=== PATIENT | female | born 2000 | race Asian ===

== ENCOUNTER 2019-11-12 12:30 | Emergency (ER) | payer OTHER, SELFPAY ==
[2019-11-12 12:31] VITALS: BP 92/69; PULSE 145; RESP 18; TEMP 39.2; O2SAT 95; BMI 18.3
--- NOTE | 2019-11-12 13:09 | ED.VISSUMM ---
- ER Visit Summary Date of Service: 11/12/19 Chief Complaint: Cough and fever History of Present Illness: The patient is a 18 F past medical history of thalassemia minor and asthma. This is a female from [place] is a college [employer] student. Basically since yesterday has had fever chills and cough. Cough of yellowish sputum. No abdominal pain. No dysuria. Mild sore throat mild headache. No rash. She was treated that [facility] and had negative strep test. They ran out of influenza tests according to the patient. Physical Examination: Young female no acute distress vital signs initial blood pressure 92/69. Heart rate 145. H EENT exam unremarkable. Moist wheeze members. Posterior pharynx unremarkable. No erythema or exudate. No trouble swallowing or breathing. She has had a fever of 102.5. Neck nontender no lymphadenopathy meningismus. Lungs clear to auscultation bilaterally. Heart tachycardic no murmur. Abdomen soft nontender normal bowel sounds no peritoneal signs. Patient is moving all 4 extremities. Neurovascular intact. The nontender. There is no redness or warmth. No swollen joints. Skin no rashes. Back nontender. Neurologically she is awake alert with no focal motor deficits. Test Results: Chest x-ray 2 views AP and lateral shows no acute abnormality. No pneumonia. Read both by myself and radiologist. Emergency Department Course and Treatment: History and exam are consistent with a viral syndrome possibly influenza. She has not been in [place] recently. Medically she does not look septic or toxic. Should be treated with Motrin. And will obtain a chest x-ray to rule out pneumonia. Treatment Plan: Repeat exam the patient is doing well at 1358. Repeat vital signs are stable. Disposition: Discharge Impression: Acute influenza This note was generated with [employer] dictation software. It may contain incorrect words, spelling, and punctuation that were not noted in review of the chart prior to signing
--- NOTE | 2019-11-12 13:21 | RAD_ITS ---
STUDY: X-RAY CHEST REASON FOR EXAM: Female, 18 years old. COUGH, FEVER, H/A X 1 WK. TECHNIQUE: PA and lateral views of the chest. COMPARISON: None. FINDINGS: The lungs are clear and expanded. There is no demonstrated pleural abnormality. Normal size heart. Normal mediastinum and morgan. Normal visualized pulmonary arteries. Normal visualized aortic arch and descending thoracic aorta. Normal visualized thoracic spine. Normal visualized ribs, clavicles, and shoulders. There is no demonstrated abnormality of the visualized soft tissue structures of the upper abdomen. RAD/Chest PA and Lateral IMPRESSION: Normal x-ray examination of the chest. Electronically Signed: Cali Branch, at 13:45 EST , Service support ,
[2019-11-12] MEDS: Ibuprofen 600 MG Tablet PO (13:44)
[2019-11-12 13:47] VITALS: BP 97/63; PULSE 112; RESP 16; TEMP 37; O2SAT 98
--- NOTE | 2019-11-12 13:59 | ED.DEP ---
ED Disposition - Plan for ED Patient: Disposition: Home or Assisted Living Instructions: INFLUENZA (Adult) Referrals: Pierre Vergara MD [STAFF PHYSICIAN] - 1 Week if not improving Additional Instructions: Plenty of fluids and rest. Alternate Tylenol and Motrin for the fevers. You should begin feeling better in the next 72 hours but it may take 1 to 2 weeks to get back to your normal. Follow-up if not improving or return to ER if you are feeling worse.
== END 2019-11-12 14:13 | disposition home or self-care (01) ==
PROVIDERS: Emergency Provider Emergency Medicine
DX: J11.1 Influenza due to unidentified influenza virus with other respiratory manifestations (principal)
CPT/HCPCS: 71046; 99284

== ENCOUNTER 2022-07-01 18:07 | Emergency (ER) | payer OTHER, SELFPAY ==
[2022-07-01 18:08] VITALS: BP 106/81; PULSE 82; RESP 16; TEMP 37; O2SAT 100
--- NOTE | 2022-07-01 18:41 | CT_ITS ---
STUDY: CT BRAIN WITHOUT CONTRAST REASON FOR EXAM: Female, 21 years old. HEADACHE head injury TECHNIQUE: Transaxial CT imaging of the brain was performed without administration of intravenous contrast material. Individualized dose optimization techniques were used for this CT. COMPARISON: None FINDINGS: Normal calvarium. Normal soft tissues. Normal size ventricles and extra-axial spaces for the patient''s age. Normal white matter tracts of the cerebral hemispheres. Normal basal ganglia and thalami. Normal brainstem. Normal cerebellum. There is no intracranial hemorrhage. There are no findings of an acute ischemic infarction. Normal visualized paranasal sinuses. ASPECTS 10 CT/Brain/Head without Contrast IMPRESSION: There are no acute intracranial findings. Electronically Signed: Walker Rubio MD at 19:08 EDT ,
--- NOTE | 2022-07-01 18:42 | EDS_ITS ---
HPI History of Present Illness Chief Complaint: Head Injury Informant: patient Narrative Narrative: Patient presents worsening dizziness nausea today. Sustain a head injury 2 days ago. States was intoxicated. She is on her second bunk when she fell down onto a carpeted hard floor. She did not pass out. Reports been laying in bed last 2 days. She has bruises that are healing primary to her right lower leg. She does not take anticoagulation medicines. History anxiety depression on medications. No new injuries. Today while trying to walk more dizzy and nauseated. Wanted to get checked out. No history of concussions in the past. Prior similar symptoms: No PFSH PFSH Home Medications albuterol sulfate 90 mcg/actuation aerosol inhaler 1 puff inhalation Q4H PRN PRN Wheezing 11/12/19 [History Last Taken Unknown] fluticasone propionate 100 mcg/actuation blister powder for inhalation 100 mcg inhalation BID 11/12/19 [History Last Taken Unknown] ondansetron 4 mg disintegrating tablet 4 mg PO Q6H PRN nausea and vomiting #10 tabs 07/01/22 [Rx Last Taken Unknown] Allergy/AdvReac Type Severity Reaction Status Date / Time No Known Allergies Allergy Verified 07/01/22 18:08 Social History Smoking Status: Never smoker ROS ROS ED Constitutional Constitutional ED: Denies chills, fever(s) or sweats Eyes Eyes: Denies change in vision ENT ENT ED: Denies dysphagia or sore throat Cardiovascular Cardiovascular: Denies chest pain, leg edema, palpitations or racing heartbeat Respiratory/Chest Respiratory/Chest: Denies cough, dyspnea or dyspnea on exertion Gastrointestinal Gastrointestinal: Reports nausea; Denies abdominal pain, diarrhea or vomiting Genitourinary Genitourinary ED: Denies dysuria, hematuria or urinary frequency Musculoskeletal Musculoskeletal: Denies back pain, extremity pain or neck pain Integumentary Denies rash or wounds Neurologic Neurologic: Denies headache(s), paresthesias or weakness EXAM Physical Exam Const Vital Signs: 07/01/22 18:08 Temperature 98.6 F Temperature Source Temporal Pulse Rate 82 Respiratory Rate 16 Blood Pressure 106/81 H Blood Pressure Mean 89 Pulse Ox 100 Oxygen Delivery Method Room Air GCS 15. Positive well nourished and well developed General Appearance ED: well developed and NAD HEENT Reports TM's clear and moist mucous membranes HEENT Narrative: No hemotympanums. normocephalic and atraumatic Tympanic Membrane ED: Yes TM's clear Eyes PERRL, EOMs intact bilaterally and conjunctivae normal General Eye ED: Yes normal appearance of both eyes Neck no lymphadenopathy and supple General: Negative for tenderness Chest Wall Chest: Negative for tenderness Resp normal respiratory effort and normal air movement Effort and Inspection: symmetric chest movement; Negative for respiratory distress Cardio regular rate, regular rhythm and no murmurs Peripheral Pulses: pulses 2+ throughout GI normal to inspection, nondistended, normoactive bowel sounds and non-tender Palpation: Negative for guarding or rebound tenderness present Back/Spine no CVA tenderness and no thoracic nor lumbar tenderness Extremity normal to inspection Extremity Narrative: Full range of motion all 4 extremities no deformities. Pulses intact x4. General Extremety ED: Negative for edema or tenderness General Extremity: Negative for edema Neuro oriented x3, CN's II-XII intact bilaterally and no sensory deficits noted Sensorium / Orientation: awake and alert Skin Skin Narrative: Right anterior mid asencio ecchymosis skin intact. MDM MDM MDM Narrative Medical decision making narrative: LisaPatient no focal deficits on exam concussion symptoms however feet with head injury [address] With negative [address] head obtained read by radiology negative for any acute process. She was given Zofran with improvement of symptoms. She has Tylenol at home to use as needed. Prescription of Zofran to her pharmacy. Follow-up given her outpatient. Brain rest with concussion precaution discussed. All questions were answered. Radiography Diagnostic Testing: Clinical Impression(s) from Imaging Studies Brain CT 07/01/22 18:41 IMPRESSION: There are no acute intracranial findings. Electronically Signed: Walker Rubio MD at 19:08 EDT Reading Location ID and State: [facility] / [place] , Service support , Discharge Plan Triage Chief Complaint: Head Injury ED Provider: Yoel Riley Dx/Rx/DC Orders Clinical Impression: Concussion, Nausea, Dizziness Instructions: ED Concussion Prescriptions: New ondansetron 4 mg tablet,disintegrating 4 mg PO Q6H PRN (Reason: nausea and vomiting) Qty: 10 0RF No Action fluticasone propionate 100 MCG blister with device 100 mcg inhalation BID albuterol sulfate 1 INHALER inhaler 1 puff inhalation Q4H PRN PRN (Reason: Wheezing) Primary Care Provider: Care Physician,No Primary Referrals: Cathy Beard MD [Med Staff - Junior Accounting Clerk] - 1 Week Care Physician,No Primary [Primary Care Provider] - Activity Restrictions/Additional Instructions: CT brain negative. Use Tylenol 1 g every 6 hours as needed. Zofran as needed. Follow-up as an outpatient. Disposition Disposition: Home, Self Care Discharge Date/Time: 07/01/22 20:14
[2022-07-01] MEDS: Ondansetron ODT 4 MG Tablet PO (18:46)
== END 2022-07-01 20:14 | disposition home or self-care (01) ==
PROVIDERS: Emergency Provider Emergency Medicine; Visit Provider Emergency Medicine
DX: S06.0X0A Concussion without loss of consciousness, initial encounter (principal); S80.11XA Contusion of right lower leg, initial encounter; W06.XXXA Fall from bed, initial encounter
CPT/HCPCS: 70450; 99283

== ENCOUNTER 2022-11-29 02:26 | Emergency (ER) | payer OTHER, SELFPAY ==
[2022-11-29 02:27] VITALS: BP 104/76; PULSE 89; RESP 16; TEMP 36.4; O2SAT 98; BMI 22.0
--- NOTE | 2022-11-29 02:39 | EKG12_ITS ---
Test Reason : DYSRHYTHMIA Blood Pressure : / mmHG Vent. Rate : 083 BPM Atrial Rate : 083 BPM P-R Int : 144 ms QRS Dur : 070 ms QT Int : 382 ms P-R-T Axes : 036 049 020 degrees QTc Int : 448 ms Normal sinus rhythm Normal ECG Confirmed by RITA RUSH, RICHARD ([id number]), editor greeting card BILL EUCEDA ([id number]) on 12/02/2022 12:35:35 PM Referred By: NATALYA Confirmed By:RICHARD SALINAS MD
--- NOTE | 2022-11-29 02:45 | EX.ED.VIS.PS ---
HPI HPI - Psych History of Present Illness Chief Complaint: Overdose Detail of Chief Complaint: Drug overdose Informant: patient and EMS Narrative Narrative: Patient presents the emergency department via EMS after an intentional drug overdose. Patient tells me that she ingested approximately 25 tablets of 25 mg each of Seroquel. Patient also states that she drank a bottle of wine and this occurred approximately 1:45 AM. Patient feels a little bit jittery. Patient denies vomiting. Patient states that she kind of freaked out and took the overdose because she has been depressed. She had suicidal thoughts a week ago as well but she states that she was able to snap out of it. She denies any acute events that triggered this episode. Patient states she has had prior attempt at killing herself at the age of 17. Patient denies auditory or visual hallucinations. She otherwise has no medical problems. Prior similar symptoms: Yes PFSH [facility] Medical History (Updated 11/29/22 @ 05:[address] Buck Michaels DO) Asthma Depression Home Medications albuterol sulfate 90 mcg/actuation aerosol inhaler 1 puff inhalation Q4H PRN PRN Wheezing 11/12/19 [History Last Taken Unknown] fluticasone propionate 100 mcg/actuation blister powder for inhalation 100 mcg inhalation BID 11/12/19 [History Last Taken Unknown] ondansetron 4 mg disintegrating tablet 4 mg PO Q6H PRN nausea and vomiting #10 tabs 07/01/22 [Rx Last Taken Unknown] lamotrigine 25 mg tablet 50 mg PO DAILY 11/29/22 [History Last Taken Unknown] lithium carbonate 300 mg capsule 300 mg PO DAILY 11/29/22 [History Last Taken Unknown] quetiapine 25 mg tablet 25 - 50 mg PO QHS PRN PRN Sleep 11/29/22 [History Last Taken Unknown] Allergy/AdvReac Type Severity Reaction Status Date / Time No Known Allergies Allergy Verified 11/29/22 02:40 Social History Smoking Status: Current every day smoker tobacco type: cigarettes ROS ROS ED Review of Systems ROS Unobtainable: other Constitutional Constitutional ED: Reports lethargy; Denies chills, fever(s), sweats or weight loss Eyes Eyes: Denies blurry vision, change in vision or diplopia ENT ENT ED: Denies rhinorrhea or sore throat Cardiovascular Cardiovascular: Reports chest pain and racing heartbeat; Denies orthopnea Respiratory/Chest Respiratory/Chest: Reports dyspnea and dyspnea on exertion; Denies cough, orthopnea or sputum Gastrointestinal Gastrointestinal: Denies abdominal pain, diarrhea, nausea or vomiting Genitourinary Genitourinary ED: Denies dysuria, hematuria or urinary frequency Musculoskeletal Musculoskeletal: Denies arthralgias, back pain, myalgias or neck pain Integumentary Denies abscess, Abrasions or rash Neurologic Neurologic: Denies headache(s) or weakness Psychiatric Psychiatric: Reports anxiety, depression, suicidal ideation and suicidal thoughts Endocrine Endocrinology: Denies polydipsia, polyphagia or polyuria Hematologic/Lymphatic Hematologic/Lymphatic: Denies easy bleeding, easy bruising or lymphadenopathy Allergic/Immunologic Allergic/Immunologic ED: Denies mouth swelling, tongue swelling or urticaria EXAM Physical Exam Narrative Exam Narrative: Forehead is diaphoretic Const Vital Signs: 11/29/22 02:27 11/29/22 05:11 Temperature 97.6 F L Temperature Source Temporal Pulse Rate 89 86 Respiratory Rate 16 16 Blood Pressure 104/76 92/70 Blood Pressure Mean 85 77 Pulse Ox 98 98 Oxygen Delivery Method Room Air Room Air Positive well nourished and well developed General Appearance ED: well developed and NAD HEENT Reports TM's clear and moist mucous membranes normocephalic and atraumatic; Negative for trauma or tenderness Tympanic Membrane ED: Yes TM's clear Eyes PERRL and EOMs intact bilaterally General Eye ED: Negative for pale conjunctiva or scleral icterus Neck no lymphadenopathy, supple and no JVD General: Negative for tenderness Chest Wall inspection of chest normal and palpation of chest normal Chest: Negative for tenderness Resp normal respiratory effort and clear to auscultation bilaterally Effort and Inspection: Negative for respiratory distress or pain with movement Auscultation: Negative for rhonchi, wheezes or diminished lung sounds Cardio regular rate, regular rhythm, S1 normal heart sound, S2 normal heart sound and no murmurs Peripheral Pulses: pulses 2+ throughout GI normal to inspection, nondistended, normoactive bowel sounds, soft to palpation, non-tender, non-distended and no masses Back/Spine no CVA tenderness and no thoracic nor lumbar tenderness Extremity normal to inspection General Extremety ED: Negative for edema General Extremity: Negative for edema Neuro oriented x3, CN's II-XII intact bilaterally, no sensory deficits noted and gait normal Sensorium / Orientation: awake, alert, oriented to person, oriented to place and oriented to time Motor Exam: strength 5/5 throughout and strength abnormal Psych mental status grossly normal Skin no rashes or lesions noted and no wounds MDM MDM MDM Narrative Medical decision making narrative: IV line established on arrival and patient placed on a court monitor. I discussed case immediately with poison control. She is within the 1 hour from ingestion time and currently not somnolent or obtunded therefore will go ahead and give activated charcoal as this may be beneficial. Patient had toxicology screen as well as lab work and EKG ordered. Patient will also have salicylate and acetaminophen level obtained. Patient's lab work unremarkable. Toxicology screen was negative. Alcohol was 64. EKG showed a sinus rhythm with no QT prolongation and no acute ST segment changes. Patient was evaluated by crisis and they agree that she will require transfer to psychiatric facility for definitive care and stabilization. Care of patient will be turned over to morning physician awaiting transfer to psychiatric facility. Lab Data Attestation: I reviewed the patient's lab results. Labs: Laboratory Results - last 24 hr 11/29/22 11/29/22 11/29/22 02:48 02:48 02:48 WBC 8.5 RBC 6.07 H Hgb 13.0 Hct 43.0 MCV 70.8 L MCH 21.4 L MCHC 30.2 L RDW Std Deviation 35.1 RDW Coeff of Isidro 14.5 Plt Count 233 Immature Gran % (Auto) 0.200 Neut % (Auto) 52.9 Lymph % (Auto) 37.4 [place] % (Auto) 5.3 Eos % (Auto) 3.6 Baso % (Auto) 0.6 Absolute Neuts (auto) 4.5 Absolute Lymphs (auto) 3.18 Nucleated RBC % 0 Sodium 141 Potassium 3.7 Chloride 107 Carbon Dioxide 24.0 Anion Gap 10 BUN 14 Creatinine 0.72 Estim Creat Clear Calc 110.28 Est GFR (MDRD) Af Amer 128 Est GFR (MDRD) Non-Af 106 BUN/Creatinine Ratio 19.3 Glucose 126 H Calcium 9.4 Serum , Qual Salicylates < 1.7 L Urine Opiates Screen Urine Methadone Screen Acetaminophen 17.8 Ur Barbiturates Screen Ur Phencyclidine Scrn Ur Amphetamines Screen MDMA (Ecstasy) Screen U Benzodiazepines Scrn Urine Cocaine Screen U Cannabinoids Screen Ur Drug Screen Comment Ethyl Alcohol 64.0 11/29/22 11/29/22 02:48 02:58 WBC RBC Hgb Hct MCV MCH MCHC RDW Std Deviation RDW Coeff of Isidro Plt Count Immature Gran % (Auto) Neut % (Auto) Lymph % (Auto) [place] % (Auto) Eos % (Auto) Baso % (Auto) Absolute Neuts (auto) Absolute Lymphs (auto) Nucleated RBC % Sodium Potassium Chloride Carbon Dioxide Anion Gap BUN Creatinine Estim Creat Clear Calc Est GFR (MDRD) Af Amer Est GFR (MDRD) Non-Af BUN/Creatinine Ratio Glucose Calcium Serum , Qual NEGATIVE Salicylates Urine Opiates Screen NEGATIVE Urine Methadone Screen NEGATIVE Acetaminophen Ur Barbiturates Screen NEGATIVE Ur Phencyclidine Scrn NEGATIVE Ur Amphetamines Screen NEGATIVE MDMA (Ecstasy) Screen NEGATIVE U Benzodiazepines Scrn NEGATIVE Urine Cocaine Screen NEGATIVE U Cannabinoids Screen NEGATIVE Ur Drug Screen Comment Ethyl Alcohol EKG Initial EKG: Attestation: I personally reviewed and interpreted this EKG as follows: Comments: Sinus rhythm with a rate of 83 bpm with no acute ST segment changes and no evidence for QT prolongation Discharge Plan Triage Chief Complaint: Overdose ED Provider: Buck Michaels Dx/Rx/DC Orders Clinical Impression: Depression, Suicidal ideation, Drug overdose, intentional Prescriptions: No Action fluticasone propionate 100 MCG blister with device 100 mcg inhalation BID albuterol sulfate 1 INHALER inhaler 1 puff inhalation Q4H PRN PRN (Reason: Wheezing) ondansetron 4 mg tablet,disintegrating 4 mg PO Q6H PRN (Reason: nausea and vomiting) Qty: 10 0RF quetiapine 25 mg tablet 25 - 50 mg PO QHS PRN PRN (Reason: Sleep) Label Comments: Take 1 to 2 tabs by mouth daily at bedtime for nsomnia lamotrigine 25 mg Tablet 50 mg PO DAILY lithium carbonate 300 mg capsule 300 mg PO DAILY Label Comments: TAKE 1 CAPSULE BY MOUTH TWICE DAILY Primary Care Provider: Care Physician,No Primary Referrals: Care Physician,No Primary [Primary Care Provider] - Disposition Disposition: Psychiatric Hospital or Unit
[2022-11-29] MEDS: 0.9% Normal Saline 1,000 ML 150 ML IV (02:59)
[2022-11-29] MEDS: Activated Charcoal 25 GM/120 ML BOT PO (02:59)
[2022-11-29 03:06] LABS: Absolute Lymphocyte Count 3.18 X10^3/uL (0.83-4.51); Absolute Neutrophil Count 4.5 X10^3/uL (2.0-7.7); Basophil# 0.05 X10^3/uL; Basophil% 0.6 % (0-1); Eosinophil# 0.31 X10^3/uL; Eosinophils% 3.6 % (0-5); Lymphocyte # 3.18 X10^3/ul (0.83-4.51); Lymphocyte % 37.4 % (19-41); Mean Corp Hgb Conc 30.2 g/dL (32-36); Mean Corpuscular Hgb 21.4 pg (27.0-32.0); Mean Corpuscular Volume 70.8 fL (81-99); Monocyte# 0.45 X10^3/uL; Monocyte% 5.3 % (0-10); NRBC Flagged by Analyzer 0 % (0-5); Neutrophil # 4.49 X10^3/uL (2.7-7.7); Neutrophil % 52.9 % (47-70); Platelet Count 233 K/mm3 (150-450); RBC Distribution Width CV 14.5 % (11.6-14.6); RBC Distribution Width SD 35.1 fl (35.1-43.9); Red Blood Count 6.07 M/mm3 (4.2-5.4); White Blood Count 8.5 K/mm3 (4.4-11.0)
[2022-11-29 03:17] LABS: Anion Gap 10 (5-15); BUN 14 mg/dL (7-18); BUN/Creat Ratio 19.3 RATIO (10-20); Calcium,Total 9.4 mg/dL (8.5-10.1); Chloride 107 mmol/L (98-107); Creatinine, Serum 0.72 mg/dL (0.55-1.02); EST Glomerular Filtration Rate 106 mL/min (>60); Est Glom Filt Rate - Afr Amer 128 mL/min (>60); Estimated Creatinine Clearance 110.28 ml/min; Glucose 126 mg/dL (74-106); Potassium 3.7 mmol/L (3.5-5.1); Sodium Level 141 mmol/L (136-145)
[2022-11-29 03:35] LABS: Internal QC Validated? YES +Cl - CLEAR BKGD; Pregnancy, Serum, hCG Quali. NEGATIVE Negative
[2022-11-29 03:49] LABS: Amphetamine Urine VISTA NEGATIVE (<1000 ng/mL); Barbiturate Urine VISTA NEGATIVE (< 200 ng/mL); Benzodiazepine Urine VISTA NEGATIVE (< 200 ng/mL); Cocaine Urine VISTA NEGATIVE (< 300 ng/mL); Ecstacy Urine VISTA NEGATIVE (< 500 ng/mL); Methadone Urine VISTA NEGATIVE (< 300 ng/mL); PCP Urine VISTA NEGATIVE (< 25 ng/mL); THC Urine VISTA NEGATIVE (< 50 ng/mL); Vista UDS pH Range 6
[2022-11-29 04:06] LABS: Acetaminophen (Tylenol) Level 17.8 ug/mL (10.0-30.0); Salicylate < 1.7 mg/dL (2.8-20.0)
--- NOTE | 2022-11-29 04:06 | NURSING ---
CALLED CRISIS AT [phone]
[2022-11-29 05:11] VITALS: BP 92/70; PULSE 86; RESP 16; O2SAT 98
[2022-11-29 06:00] VITALS: BP 95/68; PULSE 86; RESP 14; O2SAT 99
[2022-11-29 07:00] VITALS: BP 92/65; PULSE 88; RESP 16; O2SAT 96
[2022-11-29 08:00] VITALS: BP 96/67; PULSE 114; RESP 22; O2SAT 96
[2022-11-29 08:52] VITALS: BP 96/67; PULSE 114; RESP 22; O2SAT 96
--- NOTE | 2022-11-29 09:01 | ED.RN ---
Report called to [facility] at [place]
== END 2022-11-29 09:02 ==
PROVIDERS: Emergency Provider Emergency Medicine; Visit Provider Emergency Medicine
DX: T43.592A Poisoning by other antipsychotics and neuroleptics, intentional self-harm, initial encounter (principal); F32.A Depression, unspecified; F17.210 Nicotine dependence, cigarettes, uncomplicated; Z79.899 Other long term (current) drug therapy
CPT/HCPCS: 80048; 80307; 80329; 82077; 84703; 85025; 87811; 93005; 96360; 96361; 99285; J7030; A4216; G0480